=== PATIENT | female | born 1985 | race Asian ===

== ENCOUNTER 2018-10-17 14:50 | Emergency (ER) | payer BC ==
[2018-10-17 14:56] VITALS: BMI 24.5
--- NOTE | 2018-10-17 14:59 | PDOC ---
Rapid Medical Evaluation Chief Complaint: Pain, Acute Medical Evaluation: Allergies Allergy/AdvReac Type Severity Reaction Status Date / Time almond oil [[place] Oil] Allergy Verified 01/12/15 16:35 kiwi Allergy Verified 01/12/15 16:35 [Kiwi (Actinidia Chinensis)] 10/17/18 14:52 I have performed a brief in-person evaluation of this patient. The patient presents with a chief complaint of: abd pain/ Hx of pancreatitis r/ t triglycerides Pertinent physical exam findings: bloating with pain upper quad. + diarhea I have ordered the following: UA/ CMP/ Lipase/ Amylase/ CBC The patient will proceed to the ED for further evaluation.
[2018-10-17 15:58] LABS: PH,URINE 5.5 (5.0-8.0); URINE APPEARANCE CLEAR; URINE BILIRUBIN NEGATIVE (NEGATIVE); URINE COLOR YELLOW; URINE GLUCOSE (UA) NEGATIVE (NEGATIVE); URINE KETONE NEGATIVE (NEGATIVE); URINE LEUK ESTERASE NEGATIVE (NEGATIVE); URINE NITRITE NEGATIVE (NEGATIVE); URINE PROTEIN NEGATIVE (NEGATIVE); URINE UROBILINOGEN 0.2 mg/dL (0.2-1.0)
[2018-10-17 15:59] LABS: BASO % 0.4 % (0-2.0); EOS % 1.9 % (0-4.5); HEMATOCRIT 39.6 % (32.4-45.2); HEMOGLOBIN 13.5 GM/dL (10.7-15.3); LYMPH % 51.3 % (8-40); MCH 29.6 pg (25.7-33.7); MCHC 34.1 g/dl (32.0-36.0); MEAN CELL VOLUME 86.8 fl (80-96); MEAN PLT VOLUME 6.8 fl (7.5-11.1); MONO % 7.5 % (3.8-10.2); NEUT % 38.9 % (42.8-82.8); PLATELET COUNT 314 K/MM3 (134-434); RBC 4.55 M/mm3 (3.60-5.2); RDW 13.3 % (11.6-15.6); WHITE BLOOD COUNT 6.9 K/mm3 (4.0-10.0)
[2018-10-17] MEDS ORDERED: morphine CARPU-JECT 2 MG/1 ML DISP.SYRIN IVPUSH ONE (16:02)
[2018-10-17] MEDS ORDERED: SODIUM CHLORIDE 1,000 ML IV STA (16:02)
[2018-10-17 16:25] LABS: ALK PHOS 47 U/L (45-117); AMYLASE 54 U/L (25-115); ANION GAP 8 MMOL/L (8-16); BILIRUBIN,TOTAL 0.9 mg/dL (0.2-1); BLOOD UREA NITROGEN 12 mg/dL (7-18); CALCIUM 8.6 mg/dL (8.5-10.1); CHLORIDE 103 mmol/L (98-107); CO2 27 mmol/L (21-32); CREATININE 0.7 mg/dL (0.55-1.3); GLUCOSE,RANDOM 75 mg/dL (74-106); LIPASE 282 U/L (73-393); SGOT/AST 157 U/L (15-37); SGPT/ALT 210 U/L (13-61); SODIUM 138 mmol/L (136-145)
[2018-10-17] MEDS ORDERED: MORPHINE SULFATE 2 MG/ML VIAL ONE (16:48)
--- NOTE | 2018-10-17 17:21 | PDOC ---
History of Present Illness - General Chief Complaint: Pain Stated Complaint: ABD PAIN Time Seen by Provider: 10/17/18 15:57 History Source: Patient Exam Limitations: No Limitations - History of Present Illness Travel History: No Initial Comments: 10/17/18 17:17 33-year-old female presents to ED with complaints of left to right upper quadrant abdominal pain since yesterday associated abdominal distention. Patient states history of pancreatitis 3 which required ICU admission last year. Patient denies fever, chills, anorexia, nausea,recent travel, or recent illness. Timing/Duration: reports: constant Quality: reports: moderate, cramping Abdominal Pain Onset Location: reports: LUQ, epigastric Pain Radiation: reports: no radiation Activities at Onset: reports: none Aggravating Factors: improves with: None Alleviating Factors: improves with: None Past History - Travel Traveled outside of the country in the last 30 days: No Close contact w/someone who was outside of country & ill: No - Past Medical History Allergies/Adverse Reactions: Allergies Allergy/AdvReac Type Severity Reaction Status Date / Time almond oil [[place] Oil] Allergy Verified 10/17/18 14:52 kiwi Allergy Verified 10/17/18 14:52 [Kiwi (Actinidia Chinensis)] Home Medications: Ambulatory Orders Fenofibrate 150 mg PO ASDIR 10/17/18 Isoniazid 100 mg PO ASDIR 10/17/18 Sertraline HCl [Zoloft -] 50 mg PO DAILY 10/17/18 traZODone HCL [Trazodone HCl] 50 mg PO ASDIR 10/17/18 Anemia: No Asthma: Yes Cancer: No Cardiac Disorders: No CVA: No COPD: No CHF: No Dementia: No Diabetes: No GI Disorders: Yes (Pancreatitis) Disorders: Yes (uti) HTN: No Hypercholesterolemia: No Liver Disease: No Seizures: No Thyroid Disease: No - Surgical History Abdominal Surgery: No Appendectomy: No Cardiac Surgery: No Cholecystectomy: No Lung Surgery: No Neurologic Surgery: No Orthopedic Surgery: No - Immunization History Immunization Up to Date: No - Suicide/Smoking/Psychosocial Hx Smoking Status: No Smoking History: Never smoked Have you smoked in the past 12 months: Yes Number of Cigarettes Smoked Daily: 2 Information on smoking cessation initiated: No Hx Alcohol Use: No Drug/Substance Use Hx: No Substance Use Type: None Hx Substance Use Treatment: No Patient Lives Alone: No Lives with/in: spouse/SO Review of Systems - Review of Systems Able to Perform ROS?: No Constitutional: No: Symptoms Reported HEENTM: No: Symptoms Reported Respiratory: No: Symptoms reported Cardiac (ROS): No: Symptoms Reported ABD/GI: Yes: Abdominal cramping. No: Nausea, Vomiting : No: Symptoms Reported Musculoskeletal: No: Symptoms Reported Integumentary: No: Symptoms Reported Neurological: No: Symptoms reported Endocrine: No: Symptoms Reported Hematologic/Lymphatic: No: Symptoms Reported *Physical Exam - Vital Signs Last Vital Signs Temp Pulse Resp BP Pulse Ox 98.0 F 71 16 155/95 98 10/17/18 14:52 10/17/18 14:52 10/17/18 14:52 10/17/18 14:52 10/17/18 14:52 - Physical Exam General Appearance: Yes: Nourished, Appropriately Dressed. No: Apparent Distress HEENT: positive: EOMI, LUIS FELIPE, Pharynx Normal Neck: positive: Supple Respiratory/Chest: positive: Lungs Clear, Normal Breath Sounds. negative: Respiratory Distress, Accessory Muscle Use Cardiovascular: positive: Regular Rhythm, Regular Rate. negative: Tachycardia Gastrointestinal/Abdominal: positive: Soft, Tenderness (left epigastric) Musculoskeletal: negative: CVA Tenderness Integumentary: positive: Normal Color, Warm, Moist Neurologic: positive: Motor Strength 5/5 (ambulatory) ED Treatment Course - LABORATORY CBC & Chemistry Diagram: 10/17/18 15:32 10/17/18 15:31 - ADDITIONAL ORDERS Additional order review: Laboratory Results 10/17/18 10/17/18 10/17/18 16:34 15:32 15:31 Sodium 138 Potassium 4.0 Chloride 103 Carbon Dioxide 27 Anion Gap 8 BUN 12 Creatinine 0.7 Creat Clearance w eGFR 96.97 Random Glucose 75 Calcium 8.6 Total Bilirubin 0.9 AST 157 H ALT 210 H Alkaline Phosphatase 47 Total Protein 8.0 Albumin 4.0 Total Amylase 54 Lipase 282 Serum , Qual Negative Urine Color Yellow Urine Appearance Clear Urine pH 5.5 Ur Specific [place] 1.017 Urine Protein Negative Urine Glucose (UA) Negative Urine Ketones Negative Urine Blood Negative Urine Nitrite Negative Urine Bilirubin Negative Urine Urobilinogen 0.2 Ur Leukocyte Esterase Negative 10/17/18 15:32 RBC 4.55 MCV 86.8 MCHC 34.1 RDW 13.3 MPV 6.8 L Neutrophils % 38.9 L Lymphocytes % 51.3 H D Monocytes % 7.5 Eosinophils % 1.9 Basophils % 0.4 D - Medications Given in the ED: ED Medications Discontinued Medications Generic Name Dose Route Start Last Admin Trade Name Bijan PRN Reason Stop Dose Admin Sodium Chloride 1,000 mls @ 1,000 mls/hr 10/17/18 16:02 10/17/18 17:00 Normal Saline - IV 10/17/18 17:01 1,000 mls/hr ASDIR STA Administration Morphine Sulfate 2 mg 10/17/18 16:02 10/17/18 17:00 Morphine Injection - IVPUSH 10/17/18 16:03 2 mg ONCE ONE Administration Medical Decision Making - Medical Decision Making 10/17/18 17:01 Chief complaint: Left upper quadrant left epigastric pain since yesterday. Patient with history of pancreatitis 3. Patient is no other complaints this time Exam. Patient with left upper quadrant tenderness and epigastric tenderness with no distention. Vital signs stable. Plan: IV fluids, morphine, urine and labs 10/17/18 17:33 Laboratory Tests 10/17/18 10/17/18 10/17/18 15:31 15:32 15:32 WBC 6.9 Hgb 13.5 Hct 39.6 MCV 86.8 Absolute Neuts (auto) 2.7 Neutrophils % 38.9 L Lymphocytes % 51.3 H D Sodium 138 Potassium 4.0 Chloride 103 Carbon Dioxide 27 Anion Gap 8 BUN 12 Creatinine 0.7 Random Glucose 75 AST 157 H ALT 210 H Total Amylase 54 Lipase 282 Serum , Qual Urine Nitrite Negative Urine Bilirubin Negative Ur Leukocyte Esterase Negative 10/17/18 16:34 WBC Hgb Hct MCV Absolute Neuts (auto) Neutrophils % Lymphocytes % Sodium Potassium Chloride Carbon Dioxide Anion Gap BUN Creatinine Random Glucose AST ALT Total Amylase Lipase Serum , Qual Negative Urine Nitrite Urine Bilirubin Ur Leukocyte Esterase Abdominal ultrasound added secondary to elevated LFT 10/17/18 18:38 No evidence of bili tract dilatation. No evidence of cholilithiasis or acute cholecystitis. Mild right hydronephrosis is noted. The liver and partially visualized pancreas demonstrate no sonographic pathology. Patient be recommended to follow up with her PCP 10/17/18 18:42 Patient will follow-up with her primary care doctor given copy of her labs along with ultrasound findings. Patient requesting something stronger for night since she is having difficulty sleeping secondary to pain. Patient be given 6 tablets of Percocet. *DC/Admit/Observation/Transfer Diagnosis at time of Disposition: Abdominal pain - Discharge Dispostion Disposition: HOME Condition at time of disposition: Improved - Referrals Referrals: Rachele Millard MD [Primary Care Provider] - - Patient Instructions Printed Discharge Instructions: DI for Abdominal Pain-Adult Additional Instructions: Please take your lab work along with your ultrasound with history of primary care doctor for follow-up and management. May take Tylenol for discomfort or Percocet for extreme pain. If your symptoms worsen despite above recommendations please return to the nearest emergency room. - Post Discharge Activity Forms/Work/School Notes: Back to Work
[2018-10-17 18:57] VITALS: BP 130/80; PULSE 70; TEMP 98.3
[2018-10-19 03:08] LABS: HEP.C VIRUS AB 0.1 s/co ratio (0.0-0.9)
== END 2018-10-17 18:58 | disposition home or self-care (01) ==
LOC: JER 14:50
PROC: 3E033NZ Introduction of Analgesics, Hypnotics, Sedatives into Peripheral Vein, Percutaneous Approach (ICD-10-PCS; principal; 2018-10-17)
DX: R10.9 Unspecified abdominal pain (principal); Z87.19 Personal history of other diseases of the digestive system
CPT/HCPCS: 36415; 76705-TC; 80053; 80074; 81003; 82150; 83690; 84703; 85025; 99284-25; J7030

== ENCOUNTER 2018-12-20 14:25 | Emergency (ER) | payer OTHER, BC | END 2018-12-20 19:17 | disposition home or self-care (01) | LOC: JER 14:25 ==

== ENCOUNTER 2019-08-26 18:26 | Day surgery (SDC) | payer BC, OTHER ==
[2019-08-26 18:45] VITALS: BMI 26.9
[2019-08-26] MEDS ORDERED: morphine CARPU-JECT 4 MG/1 ML DISP.SYRIN IVPUSH ONE ×3 (20:17→22:22)
[2019-08-26] MEDS ORDERED: PIPERACILLIN/TAZOB 3.375 GM 3.375 GM in DEXTROSE 5%-WATER - 50 ML IVPB ONE (20:17)
[2019-08-26] MEDS ORDERED: PIPERACILLIN/TAZOB 3.375 GM 3.375 GM/50 ML BAG IVPB ONE (20:29)
[2019-08-26] MEDS ORDERED: morphine SULFATE 4 MG/ML VIAL ONE ×2 (20:29→21:00)
[2019-08-26] MEDS ORDERED: LACTATED RINGERS SOLUTION 1,000 ML/1,000 ML INFUS.BAG IV SCH (20:30)
[2019-08-26] MEDS ORDERED: SODIUM CHLORIDE 1,000 ML IV STA (20:32)
[2019-08-26] MEDS ORDERED: ONDANSETRON 4 MG/2 ML VIAL IVPB ONE (20:32)
--- NOTE | 2019-08-26 20:36 | PDOC ---
History of Present Illness - General Chief Complaint: Pain, Acute Stated Complaint: SENT BY PCP Time Seen by Provider: 08/26/19 20:11 History Source: Patient Exam Limitations: No Limitations - History of Present Illness Initial Comments: 08/26/19 20:33 33y F with PMH of HLD presenting to ED with complaints of RLQ abdominal pain x3 days. Pt states she felt bloated but continued to have the pain. She went to [facility] and was diagnosed with acute appendicitis seen on CT. She states that she had 2 spoonfuls of soup 2h ago but has not eaten anything else all day. Denies diarrhea, vomiting, nausea, chest pain, sob, headache, fevers, chills. No previous surgeries. PMD: [facility] PMH: see hpi PSH: none Meds: fenofibrate, OCP Allergies: nkda Past History - Past Medical History Allergies/Adverse Reactions: Allergies Allergy/AdvReac Type Severity Reaction Status Date / Time almond oil [[place] Oil] Allergy Verified 08/26/19 18:42 kiwi Allergy Verified 08/26/19 18:42 [Kiwi (Actinidia Chinensis)] Home Medications: Ambulatory Orders Fenofibrate 150 mg PO ASDIR 10/17/18 Isoniazid 100 mg PO ASDIR 10/17/18 Oxycodone HCl/Acetaminophen [Percocet 5-325 mg Tablet] 1 - 2 tab PO Q6H PRN #8 tab MDD 4 10/17/18 Sertraline HCl [Zoloft -] 50 mg PO DAILY 10/17/18 traZODone HCL [Trazodone HCl] 50 mg PO ASDIR 10/17/18 Acetaminophen/Caffeine/Butalb [Fioricet -] 1 tablet PO Q8H #15 tablet MDD 3 03/02 Cyclobenzaprine HCl [Flexeril -] 10 mg PO HS #10 tablet 12/20/18 Anemia: No Asthma: Yes Cancer: No Cardiac Disorders: No CVA: No COPD: No CHF: No Dementia: No Diabetes: No GI Disorders: Yes (Pancreatitis) Disorders: Yes (uti) HTN: No Hypercholesterolemia: No Liver Disease: No Seizures: No Thyroid Disease: No - Surgical History Abdominal Surgery: No Appendectomy: No Cardiac Surgery: No Cholecystectomy: No Lung Surgery: No Neurologic Surgery: No Orthopedic Surgery: No - Immunization History Immunization Up to Date: No - Psycho Social/Smoking Cessation Hx Smoking Status: No Smoking History: Never smoked Have you smoked in the past 12 months: No Number of Cigarettes Smoked Daily: 2 If you are a former smoker, when did you quit?: 1 year ago Information on smoking cessation initiated: No Hx Alcohol Use: No Drug/Substance Use Hx: No Substance Use Type: None Hx Substance Use Treatment: No Review of Systems - Review of Systems Constitutional: Yes: Loss of Appetite. No: Chills, Fever HEENTM: No: Symptoms Reported Respiratory: No: Symptoms reported Cardiac (ROS): No: Symptoms Reported ABD/GI: Yes: See HPI, Abdominal cramping. No: Constipated, Diarrhea, Nausea, Vomiting : No: Symptoms Reported Musculoskeletal: No: Symptoms Reported Integumentary: No: Symptoms Reported Neurological: No: Symptoms reported *Physical Exam - Vital Signs Last Vital Signs Temp Pulse Resp BP Pulse Ox 98.1 F 82 18 143/95 98 08/26/19 18:42 08/26/19 18:42 08/26/19 18:42 08/26/19 18:42 08/26/19 18:42 - Physical Exam General Appearance: Yes: Nourished, Appropriately Dressed, Mild Distress HEENT: positive: EOMI, LUIS FELIPE Neck: positive: Trachea midline, Supple Respiratory/Chest: positive: Lungs Clear, Normal Breath Sounds. negative: Crackles, Rales, Rhonchi, Stridor, Wheezing Cardiovascular: positive: Regular Rhythm, Regular Rate, S1, S2. negative: Edema , JVD, Murmur Vascular Pulses: Dorsalis-Pedis (R): 2+, Doralis-Pedis (L): 2+ Gastrointestinal/Abdominal: positive: Normal Bowel Sounds, Soft, Tenderness (rlq ). negative: Distended, Guarding, Rebound Extremity: positive: Normal Capillary Refill. 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 Called Dr. Yeung who is familiar with the case. CT results (PO contrast): appendix is thickened measuring 14mm in diameter, with a focus of high density which could be anppendicolith or oral contrast. Periappendiceal infiltration. compatible with appendicitis. No fluid collection. Small R lower quadrant lymph nodes mearsuring up to 0.6cm. Colon and small bowel appear within normal limits. No gastric abnormality. No ascities or peritoneal disease. Mild r hydronephrosis. Normal uterus without evidene of a mass. L ovarian cyst measuring 4.2x4.3cm. Vitals wnl Getting preop labs, surgery on board, requesting call back if with lab results -preop labs. Does not require preg; ct today- no iup. -fluids, zofran, morphine, zosyn. 08/26/19 21:12 ekg: nsr at 80bpm. normal axis, normal intervals. no francisco or depressions, no 08/26/19 22:07 labs wnl. no white count, normal cmp, serum preg negative. Calling back Dr. Yeung 08/26/19 22:14 Dr. Yeung will call OR. requesting patient to be admitted to hospitalist. MB sent. Discharge - Discharge Information Problems reviewed: Yes Clinical Impression/Diagnosis: Appendicitis Qualifiers: Appendicitis type: unspecified Qualified Code(s): K37 - Unspecified appendicitis Condition: Stable - Admission Yes - Follow up/Referral Referrals: Rachele Millard MD [Primary Care Provider] - - Patient Discharge Instructions - Post Discharge Activity
[2019-08-26 21:02] LABS: PROTHROMBIN TIME (PATIENT) 11.8 SEC (9.7-13.0)
[2019-08-26 21:05] LABS: ACTIVATED PTT 31.1 SECONDS (25.2-36.5)
--- NOTE | 2019-08-26 21:13 | PDOC ---
Documentation entered by Terrance Alexandre SCRIBE, acting as scribe for Cynthia Justice DO. Cynthia Justice DO: This documentation has been prepared by the Baldomero ramirez Xhesika, SCRIBE, under my direction and personally reviewed by me in its entirety. I confirm that the documentation accurately reflects all work, treatment, procedures, and medical decision making performed by me. Attending Attestation - Resident Resident Name: Belén Stone - ED Attending Attestation I have performed the following: I have examined & evaluated the patient, The case was reviewed & discussed with the resident, I agree w/resident's findings & plan, Exceptions are as noted - HPI HPI: 08/26/19 21:05 This patient is a 33 year old female, with a significant past medical history of pancreatitis, asthma and chronic UTIs, who presents to the emergency department with RLQ abdominal pain x3days. Pt states her abdominal pain began while at work, today she went to [facility], had a CT done which was positive for appendicitis. The patient denies chest pain, shortness of breath, headache and dizziness. Denies fever, chills, cough, nausea, vomiting, diarrhea and constipation. Denies dysuria, frequency, urgency and hematuria. Allergies: Almonds, kiwi Social history: Reports alcohol use (2-4 drinks weekly) and social cigarette use. She denies drug use. PCP: Dr. Jaspreet Hankins - Physicial Exam PE: 08/26/19 21:05 GENERAL: Awake, alert, and fully oriented, in no acute distress NECK: Normal ROM, supple, no lymphadenopathy, JVD, or masses LUNGS: Breath sounds equal, clear to auscultation bilaterally. No wheezes, and no crackles HEART: Regular rate and rhythm, normal S1 and S2, no murmurs, rubs or gallops ABDOMEN: +RLQ tenderness. Soft, normoactive bowel sounds. No guarding, no rebound. No masses EXTREMITIES: Normal range of motion, no edema. No clubbing or cyanosis. No cords, erythema, or tenderness NEUROLOGICAL: Cranial nerves II through XII grossly intact. SKIN: Warm, Dry, normal turgor, no rashes or lesions noted. - Medical Decision Making 08/26/19 21:11 a/p: 33yo female sent from [facility] for acute appy on ct -pt already discussed the case with Dr. crespo -will send labs -will start zosyn -npo -type and screen -resident discussed the case with Dr. Crespo who requested call back when labs back -will monitor and reassess -pain control, ivf hydration 08/26/19 21:13 serum preg neg 08/26/19 21:16 08/26/19 21:35 no elevated wbc 08/26/19 22:21 resident discussed the case with Dr. Crespo who will be taking hte patient to the OR in 30 min microblog sent to [employer] Heart Score/ECG Review - ECG Intrepretation Comment:: 08/26/19 21:11 sinus at 80, nl axis, nl interval, no acute st/t wave findings
[2019-08-26 21:22] LABS: BASO % 0.4 % (0-2.0); EOS % 4.6 % (0-4.5); HEMATOCRIT 33.4 % (32.4-45.2); HEMOGLOBIN 11.5 GM/dL (10.7-15.3); LYMPH % 35.3 % (8-40); MCHC 34.4 g/dl (32.0-36.0); MEAN CELL VOLUME 87.2 fl (80-96); MEAN PLT VOLUME 6.6 fl (7.5-11.1); MONO % 7.5 % (3.8-10.2); NEUT % 52.2 % (42.8-82.8); PLATELET COUNT 343 K/MM3 (134-434); RBC 3.84 M/mm3 (3.60-5.2); RDW 12.2 % (11.6-15.6); WHITE BLOOD COUNT 8.8 K/mm3 (4.0-10.0)
[2019-08-26 22:05] LABS: ALBUMIN 3.5 g/dl (3.4-5.0); BILIRUBIN,TOTAL 0.4 mg/dL (0.2-1); CREATININE 0.7 mg/dL (0.55-1.3); POTASSIUM 3.7 mmol/L (3.5-5.1); TOT PROT 6.9 g/dl (6.4-8.2)
[2019-08-26] MEDS ORDERED: MORPHINE SULFATE 2 MG/ML VIAL ONE (22:26)
[2019-08-26] MEDS ORDERED: BUPIVACAINE HCL/PF 0.25% (2.5MG/ML) 10 ML VIAL ONE (23:07)
--- NOTE | 2019-08-26 23:12 | OP ---
Operative Note - Note: Operative Date: 08/26/19 Pre-Operative Diagnosis: acute appendicittis Operation: laparoscopic Appendectomy Findings: acute appendicitis Post-Operative Diagnosis: Same as Pre-op Surgeon: Norris Yeung Anesthesia: General Specimens Removed: appendix Estimated Blood Loss (mls): 5 Operative Report Dictated: Yes
[2019-08-26] MEDS ORDERED: PROPOFOL 20 ML ONE (23:34)
[2019-08-26] MEDS ORDERED: SUCCINYLCHOLINE CHLORIDE 200 MG/10 ML SYRINGE ONE (23:34)
[2019-08-26] MEDS ORDERED: fentaNYL CITRATE 250 MCG/5 ML VIAL ONE (23:34)
[2019-08-26] MEDS ORDERED: LIDOCAINE HCL/PF 2% SDV 5ML VIAL ONE (23:34)
[2019-08-26] MEDS ORDERED: BUPIVACAINE HCL/PF 0.25% (2.5MG/ML) 10 ML VIAL IJ ONE (23:58)
[2019-08-27] MEDS ORDERED: KETOROLAC TROMETHAMINE 30 MG/1 ML VIAL ONE (00:11)
[2019-08-27] MEDS ORDERED: DEXAMETHASONE SOD PHOSPHATE 4 MG/1 ML VIAL ONE (00:11)
[2019-08-27] MEDS ORDERED: LIDOCAINE HCL 2% 100 MG/5 ML DISP.SYRIN ONE (00:11)
[2019-08-27] MEDS ORDERED: ONDANSETRON 4 MG/2 ML VIAL IVPUSH PRN (00:41)
[2019-08-27] MEDS ORDERED: PROMETHAZINE HCL 25 MG/1 ML VIAL IVPUSH PRN (00:41)
[2019-08-27] MEDS ORDERED: MORPHINE SULFATE 2 MG/ML VIAL ONE (00:45)
[2019-08-27] MEDS ORDERED: morphine SULFATE 4 MG/ML VIAL ONE ×2 (00:45)
[2019-08-27] MEDS ORDERED: PIPERACILLIN/TAZOB 3.375 GM 3.375 GM/50 ML BAG IVPB ONE (00:45)
--- NOTE | 2019-08-27 01:10 | HP ---
<Paulette Farrar - Last Filed: 08/27/19 00:46> CHIEF COMPLAINT: Appendicitis PCP: Dr. Millard HISTORY OF PRESENT ILLNESS: 33 F PMH of recurrent pancreatitis, HLD, asthma, and anxiety who presents today with acute appendicitis as confirmed by outpatient imaging. Patient has had 3 days of worsening abdominal pain that she localizes to the right lower quadrant. She has not had any nausea or vomiting, and had a normal formed bowel movement a few hours before admission. Patient denies having regular appetite but has been able to maintain PO intake. Patient differentiates her symptoms from her usual pancreatitis symptomolgy. ER course was notable for: (1) Morphine 4mg x2, and 2mg was given, zoysn, and zofran were given (2) Surgery was consulted, decision was made to take the patient to the OR emergently for appendectomy Recent Travel: Denies PAST MEDICAL HISTORY: pancreatitis, HLD, asthma, chronic UTI PAST SURGICAL HISTORY: None Social History: Smoking: Denies Alcohol: Occasional Drugs: Denies Allergies almond oil [[place] Oil] Allergy (Verified 08/26/19 18:42) order sheet states allergy to almond kiwi [Kiwi (Actinidia Chinensis)] Allergy (Verified 08/26/19 18:42) order sheet states kiwi allergy HOME MEDICATIONS: Home Medications Medication Instructions Recorded Fenofibrate 150 mg PO ASDIR 10/17/18 Isoniazid 100 mg PO ASDIR 10/17/18 Oxycodone HCl/Acetaminophen 1 - 2 tab PO Q6H PRN #8 tab MDD 4 10/17/18 [Percocet 5-325 mg Tablet] Sertraline HCl [Zoloft -] 50 mg PO DAILY 10/17/18 traZODone HCL [Trazodone HCl] 50 mg PO ASDIR 10/17/18 Acetaminophen/Caffeine/Butalb 1 tablet PO Q8H #15 tablet MDD 3 12/20/18 [Fioricet -] Cyclobenzaprine HCl [Flexeril -] 10 mg PO HS #10 tablet 12/20/18 REVIEW OF SYSTEMS CONSTITUTIONAL: Present: loss of appetite, Absent: fever, chills, diaphoresis, generalized weakness, malaise, weight change HEENT: Absent: rhinorrhea, nasal congestion, throat pain, throat swelling, difficulty swallowing, mouth swelling, ear pain, eye pain, visual changes CARDIOVASCULAR: Absent: chest pain, syncope, palpitations, irregular heart rate, lightheadedness , peripheral edema RESPIRATORY: Absent: cough, shortness of breath, dyspnea with exertion, orthopnea, wheezing, stridor, hemoptysis GASTROINTESTINAL: Present: abdominal pain, abdominal distension, constipation, Absent: nausea, vomiting, diarrhea, , melena, hematochezia GENITOURINARY: Absent: dysuria, frequency, urgency, hesitancy, hematuria, flank pain, genital pain MUSCULOSKELETAL: Absent: myalgia, arthralgia, joint swelling, back pain, neck pain SKIN: Absent: rash, itching, pallor NEUROLOGIC: Absent: headache, focal weakness or paresthesias, dizziness, unsteady gait, seizure, mental status changes, bladder or bowel incontinence PSYCHIATRIC: Absent: anxiety, depression, suicidal or homicidal ideation, hallucinations. PHYSICAL EXAMINATION Vital Signs - 24 hr 08/26/19 08/26/19 18:42 22:23 Temperature 98.1 F 98.5 F Pulse Rate 82 Pulse Rate [ 88 Apical] Respiratory 18 18 Rate Blood Pressure 143/95 Blood Pressure 138/93 [Right Arm] O2 Sat by Pulse 98 99 Oximetry (%) GENERAL: Awake, alert, and fully oriented, in discomfort. HEAD: Normal with no signs of trauma. EARS, NOSE, THROAT: Moist mucus membranes NECK: Normal range of motion, supple without lymphadenopathy, JVD, or masses. LUNGS: CTAB HEART: Regular rate and rhythm, normal S1 and S2 without murmur, rub or gallop. ABDOMEN: Distended, tender to palpation in the RLQ. Normoactive bowel sounds, no guarding or rebound tenderness MUSCULOSKELETAL: Normal range of motion at all joints. No bony deformities or tenderness. No CVA tenderness. UPPER EXTREMITIES: 2+ pulses, warm, well-perfused. No cyanosis. No clubbing. No peripheral edema. LOWER EXTREMITIES: 2+ pulses, warm, well-perfused. No calf tenderness. No peripheral edema. NEUROLOGICAL: Cranial nerves II-XII intact. PSYCHIATRIC: Cooperative. Good eye contact. Appropriate mood and affect. SKIN: Warm, dry, normal turgor, no rashes or lesions noted, normal capillary refill. Laboratory Results - last 24 hr 08/26/19 08/26/19 08/26/19 20:06 20:25 20:25 WBC Corrected WBC (auto) RBC Hgb Hct MCV MCH MCHC RDW Plt Count MPV Absolute Neuts (auto) Absolute Lymphs (auto) Absolute Monos (auto) Absolute Eos (auto) Absolute Basos (auto) Add Manual Diff Neutrophils % Lymphocytes % Monocytes % Eosinophils % Basophils % Nucleated RBC % Platelet Estimate Platelet Comment Normal RBC Morphology PT with INR INR PTT (Actin FS) Sodium Cancelled Potassium Cancelled Chloride Cancelled Carbon Dioxide Cancelled Anion Gap Cancelled BUN Cancelled Creatinine Cancelled Est GFR (CKD-EPI)AfAm Cancelled Est GFR (CKD-EPI)NonAf Cancelled Random Glucose Cancelled Lactic Acid Calcium Cancelled Total Bilirubin Cancelled AST Cancelled ALT Cancelled Alkaline Phosphatase Cancelled Total Protein Cancelled Albumin Cancelled Lipase Cancelled Serum , Qual Negative Blood Type A POSITIVE Antibody Screen Negative 08/26/19 08/26/19 08/26/19 20:25 20:25 20:25 WBC Cancelled Corrected WBC (auto) Cancelled RBC Cancelled Hgb Cancelled Hct Cancelled MCV Cancelled MCH Cancelled MCHC Cancelled RDW Cancelled Plt Count Cancelled MPV Cancelled Absolute Neuts (auto) Cancelled Absolute Lymphs (auto) Cancelled Absolute Monos (auto) Cancelled Absolute Eos (auto) Cancelled Absolute Basos (auto) Cancelled Add Manual Diff Cancelled Neutrophils % Cancelled Lymphocytes % Cancelled Monocytes % Cancelled Eosinophils % Cancelled Basophils % Cancelled Nucleated RBC % Cancelled Platelet Estimate Cancelled Platelet Comment Cancelled Normal RBC Morphology Cancelled PT with INR 11.80 INR 1.00 PTT (Actin FS) 31.1 Sodium Potassium Chloride Carbon Dioxide Anion Gap BUN Creatinine Est GFR (CKD-EPI)AfAm Est GFR (CKD-EPI)NonAf Random Glucose Lactic Acid 1.1 Calcium Total Bilirubin AST ALT Alkaline Phosphatase Total Protein Albumin Lipase Serum , Qual Blood Type Antibody Screen 08/26/19 08/26/19 08/26/19 20:25 20:53 20:57 WBC 8.8 Corrected WBC (auto) RBC 3.84 Hgb 11.5 Hct 33.4 D MCV 87.2 MCH 30.0 MCHC 34.4 RDW 12.2 Plt Count 343 MPV 6.6 L Absolute Neuts (auto) 4.6 Absolute Lymphs (auto) Absolute Monos (auto) Absolute Eos (auto) Absolute Basos (auto) Add Manual Diff Neutrophils % 52.2 D Lymphocytes % 35.3 D Monocytes % 7.5 Eosinophils % 4.6 H D Basophils % 0.4 Nucleated RBC % 0 Platelet Estimate Platelet Comment Normal RBC Morphology PT with INR INR PTT (Actin FS) Sodium 142 Potassium 3.7 Chloride 110 H Carbon Dioxide 23 Anion Gap 10 BUN 9.0 Creatinine 0.7 Est GFR (CKD-EPI)AfAm 132.87 Est GFR (CKD-EPI)NonAf 114.64 Random Glucose 97 Lactic Acid Calcium 8.0 L Total Bilirubin 0.4 AST 14 L ALT 16 Alkaline Phosphatase 30 L Total Protein 6.9 Albumin 3.5 Lipase 170 Serum , Qual Blood Type A POSITIVE Antibody Screen Negative ASSESSMENT/PLAN: 33 F PMH of recurrent pancreatitis, HLD, asthma, and anxiety who presents today with acute appendicitis. 1) Appendicitis -Outpatient imaging confirmation -General surgery- Dr. Yeung consulted. -EBL: 5ml -Pain management as per anesthesia -Clear liquid diet, advance as tolerated -D5NS @100 ml/hr until diet tolerated -Incentive spirometer 2) Hx of HLD -Continue fenofibirate 150 mg PO Daily 3) Hx of Asthma -Currently satting >97% -Continue to monitor -Duonebs/albuterol if needed F: D5-NS @100 ml/hr E: Monitor BMP N: Clears DVT: SCD Dispo: admitted to med/surg ATTENDING PHYSICIAN STATEMENT I saw and evaluated the patient. I reviewed the resident's note and discussed the case with the resident. I agree with the resident's findings and plan as documented. SUBJECTIVE: OBJECTIVE: ASSESSMENT AND PLAN: <Jeronimo Stearns - Last Filed: 08/27/19 04:33> CHIEF COMPLAINT: PCP: HISTORY OF PRESENT ILLNESS: ER course was notable for: (1) (2) (3) Recent Travel: PAST MEDICAL HISTORY: PAST SURGICAL HISTORY: Social History: Smoking: Alcohol: Drugs: Allergies almond oil [[place] Oil] Allergy (Verified 08/26/19 18:42) order sheet states allergy to almond kiwi [Kiwi (Actinidia Chinensis)] Allergy (Verified 08/26/19 18:42) order sheet states kiwi allergy HOME MEDICATIONS: Home Medications Medication Instructions Recorded Fenofibrate 150 mg PO ASDIR 10/17/18 Isoniazid 100 mg PO ASDIR 10/17/18 Oxycodone HCl/Acetaminophen 1 - 2 tab PO Q6H PRN #8 tab MDD 4 10/17/18 [Percocet 5-325 mg Tablet] Sertraline HCl [Zoloft -] 50 mg PO DAILY 10/17/18 traZODone HCL [Trazodone HCl] 50 mg PO ASDIR 10/17/18 Acetaminophen/Caffeine/Butalb 1 tablet PO Q8H #15 tablet MDD 3 12/20/18 [Fioricet -] Cyclobenzaprine HCl [Flexeril -] 10 mg PO HS #10 tablet 12/20/18 REVIEW OF SYSTEMS CONSTITUTIONAL: Absent: fever, chills, diaphoresis, generalized weakness, malaise, loss of appetite, weight change HEENT: Absent: rhinorrhea, nasal congestion, throat pain, throat swelling, difficulty swallowing, mouth swelling, ear pain, eye pain, visual changes CARDIOVASCULAR: Absent: chest pain, syncope, palpitations, irregular heart rate, lightheadedness , peripheral edema RESPIRATORY: Absent: cough, shortness of breath, dyspnea with exertion, orthopnea, wheezing, stridor, hemoptysis GASTROINTESTINAL: Absent: abdominal pain, abdominal distension, nausea, vomiting, diarrhea, constipation, melena, hematochezia GENITOURINARY: Absent: dysuria, frequency, urgency, hesitancy, hematuria, flank pain, genital pain MUSCULOSKELETAL: Absent: myalgia, arthralgia, joint swelling, back pain, neck pain SKIN: Absent: rash, itching, pallor HEMATOLOGIC/IMMUNOLOGIC: Absent: easy bleeding, easy bruising, lymphadenopathy, frequent infections ENDOCRINE: Absent: unexplained weight gain, unexplained weight loss, heat intolerance, cold intolerance NEUROLOGIC: Absent: headache, focal weakness or paresthesias, dizziness, unsteady gait, seizure, mental status changes, bladder or bowel incontinence PSYCHIATRIC: Absent: anxiety, depression, suicidal or homicidal ideation, hallucinations. PHYSICAL EXAMINATION Vital Signs - 24 hr 08/26/19 08/26/19 08/27/19 18:42 22:23 00:40 Temperature 98.1 F 98.5 F 98.4 F Pulse Rate 82 83 Pulse Rate [ 88 Apical] Respiratory 18 18 16 Rate Blood Pressure 143/95 129/90 Blood Pressure 138/93 [Right Arm] O2 Sat by Pulse 98 99 95 Oximetry (%) 08/27/19 08/27/19 08/27/19 00:55 01:10 01:25 Temperature Pulse Rate 85 84 82 Pulse Rate [ Apical] Respiratory 16 16 16 Rate Blood Pressure 118/75 115/55 L 124/78 Blood Pressure [Right Arm] O2 Sat by Pulse 99 100 98 Oximetry (%) 08/27/19 08/27/19 01:40 01:59 Temperature 98.2 F Pulse Rate 83 82 Pulse Rate [ Apical] Respiratory 14 16 Rate Blood Pressure 121/78 121/81 Blood Pressure [Right Arm] O2 Sat by Pulse 97 100 Oximetry (%) GENERAL: Awake, alert, and fully oriented, in no acute distress. HEAD: Normal with no signs of trauma. EYES: Pupils equal, round and reactive to light, extraocular movements intact, sclera anicteric, conjunctiva clear. No lid lag. EARS, NOSE, THROAT: Ears normal, nares patent, oropharynx clear without exudates. Moist mucous membranes. NECK: Normal range of motion, supple without lymphadenopathy, JVD, or masses. LUNGS: Breath sounds equal, clear to auscultation bilaterally. No wheezes, and no crackles. No accessory muscle use. HEART: Regular rate and rhythm, normal S1 and S2 without murmur, rub or gallop. ABDOMEN: Soft, nontender, not distended, normoactive bowel sounds, no guarding, no rebound, no masses. No hepatomegaly or splenomegaly. MUSCULOSKELETAL: Normal range of motion at all joints. No bony deformities or tenderness. No CVA tenderness. UPPER EXTREMITIES: 2+ pulses, warm, well-perfused. No cyanosis. No clubbing. No peripheral edema. LOWER EXTREMITIES: 2+ pulses, warm, well-perfused. No calf tenderness. No peripheral edema. NEUROLOGICAL: Cranial nerves II-XII intact. Normal speech. Normal gait. PSYCHIATRIC: Cooperative. Good eye contact. Appropriate mood and affect. SKIN: Warm, dry, normal turgor, no rashes or lesions noted, normal capillary refill. Laboratory Results - last 24 hr 08/26/19 08/26/19 08/26/19 20:06 20:25 20:25 WBC Corrected WBC (auto) RBC Hgb Hct MCV MCH MCHC RDW Plt Count MPV Absolute Neuts (auto) Absolute Lymphs (auto) Absolute Monos (auto) Absolute Eos (auto) Absolute Basos (auto) Add Manual Diff Neutrophils % Lymphocytes % Monocytes % Eosinophils % Basophils % Nucleated RBC % Platelet Estimate Platelet Comment Normal RBC Morphology PT with INR INR PTT (Actin FS) Sodium Cancelled Potassium Cancelled Chloride Cancelled Carbon Dioxide Cancelled Anion Gap Cancelled BUN Cancelled Creatinine Cancelled Est GFR (CKD-EPI)AfAm Cancelled Est GFR (CKD-EPI)NonAf Cancelled Random Glucose Cancelled Lactic Acid Calcium Cancelled Total Bilirubin Cancelled AST Cancelled ALT Cancelled Alkaline Phosphatase Cancelled Total Protein Cancelled Albumin Cancelled Lipase Cancelled Serum , Qual Negative Blood Type A POSITIVE Antibody Screen Negative 08/26/19 08/26/19 08/26/19 20:25 20:25 20:25 WBC Cancelled Corrected WBC (auto) Cancelled RBC Cancelled Hgb Cancelled Hct Cancelled MCV Cancelled MCH Cancelled MCHC Cancelled RDW Cancelled Plt Count Cancelled MPV Cancelled Absolute Neuts (auto) Cancelled Absolute Lymphs (auto) Cancelled Absolute Monos (auto) Cancelled Absolute Eos (auto) Cancelled Absolute Basos (auto) Cancelled Add Manual Diff Cancelled Neutrophils % Cancelled Lymphocytes % Cancelled Monocytes % Cancelled Eosinophils % Cancelled Basophils % Cancelled Nucleated RBC % Cancelled Platelet Estimate Cancelled Platelet Comment Cancelled Normal RBC Morphology Cancelled PT with INR 11.80 INR 1.00 PTT (Actin FS) 31.1 Sodium Potassium Chloride Carbon Dioxide Anion Gap BUN Creatinine Est GFR (CKD-EPI)AfAm Est GFR (CKD-EPI)NonAf Random Glucose Lactic Acid 1.1 Calcium Total Bilirubin AST ALT Alkaline Phosphatase Total Protein Albumin Lipase Serum , Qual Blood Type Antibody Screen 08/26/19 08/26/19 08/26/19 20:25 20:53 20:57 WBC 8.8 Corrected WBC (auto) RBC 3.84 Hgb 11.5 Hct 33.4 D MCV 87.2 MCH 30.0 MCHC 34.4 RDW 12.2 Plt Count 343 MPV 6.6 L Absolute Neuts (auto) 4.6 Absolute Lymphs (auto) Absolute Monos (auto) Absolute Eos (auto) Absolute Basos (auto) Add Manual Diff Neutrophils % 52.2 D Lymphocytes % 35.3 D Monocytes % 7.5 Eosinophils % 4.6 H D Basophils % 0.4 Nucleated RBC % 0 Platelet Estimate Platelet Comment Normal RBC Morphology PT with INR INR PTT (Actin FS) Sodium 142 Potassium 3.7 Chloride 110 H Carbon Dioxide 23 Anion Gap 10 BUN 9.0 Creatinine 0.7 Est GFR (CKD-EPI)AfAm 132.87 Est GFR (CKD-EPI)NonAf 114.64 Random Glucose 97 Lactic Acid Calcium 8.0 L Total Bilirubin 0.4 AST 14 L ALT 16 Alkaline Phosphatase 30 L Total Protein 6.9 Albumin 3.5 Lipase 170 Serum , Qual Blood Type A POSITIVE Antibody Screen Negative ASSESSMENT/PLAN: Visit type - Emergency Visit Emergency Visit: Yes ED Registration Date: 08/26/19 Care time: The patient presented to the Emergency Department on the above date and was hospitalized for further evaluation of their emergent condition. - New Patient This patient is new to me today: Yes Date on this admission: 08/27/19 - Critical Care Critical Care patient: No ATTENDING PHYSICIAN STATEMENT I saw and evaluated the patient. I reviewed the resident's note and discussed the case with the resident. I agree with the resident's findings and plan as documented. 33 F PMH of recurrent pancreatitis, HLD, asthma, and anxiety was referred by PMD after her CT Abd results showed acute appendicitis. She has been having RLQ pain for last 3 days which was progressively getting worse.. After coming to ED she was taken to the OR for lap appendectomy She denies chest pain, nausea, vomiting, fever . Last Vital Signs Temp Pulse Resp BP Pulse Ox 98.2 F 82 16 121/81 100 08/27/19 01:59 08/27/19 01:59 08/27/19 01:59 08/27/19 01:59 08/27/19 01:59 GENERAL: Awake, alert, and fully oriented, in no acute distress NECK: Normal ROM, supple, no lymphadenopathy, JVD, or masses LUNGS: Breath sounds equal, clear to auscultation bilaterally. No wheezes, and no crackles HEART: Regular rate and rhythm, normal S1 and S2, no murmurs, rubs or gallops ABDOMEN: s/p surgery, small surgical scar below umbilicus, mild abd distension and generalized tenderness, BS + EXTREMITIES: Normal range of motion, no edema. No clubbing or cyanosis. No cords, erythema, or tenderness NEUROLOGICAL: Cranial nerves II through XII grossly intact. SKIN: Warm, Dry, normal turgor, no rashes or lesions noted. labs, imaging, reviewed Acute appendicitis Admit to floor S/p surgery Analgesia IV antibiotics Zosyn Surgery on board IV hydration Diet advance as tolerated DVt ppx Discussed with resident staff.
[2019-08-27] MEDS ORDERED: DEXTROSE 5%-NORMAL SALINE 1,000 ML IV SCH (01:15)
[2019-08-27] MEDS: KETOROLAC TROMETHAMINE 15 MG/ML VIAL IVPUSH PRN ×2 (03:17→13:30)
[2019-08-27] MEDS: oxyCODONE HCL 5 MG TABLET PO PRN ×2 (03:47→09:12)
[2019-08-27] MEDS ORDERED: MORPHINE SULFATE 2 MG/ML VIAL IVPUSH ONE (06:14)
--- NOTE | 2019-08-27 08:00 | PN ---
Progress Note (short form) - Note Progress Note: ost op day#1.S/P Laproscopic appendectomy under GA uneventful.Patient stable.No any anesthesia related problem.Patient DC from the anesthesia care.
[2019-08-27 08:10] LABS: BASO % 0.1 % (0-2.0); EOS % 0.1 % (0-4.5); HEMATOCRIT 33.3 % (32.4-45.2); HEMOGLOBIN 11.7 GM/dL (10.7-15.3); LYMPH % 16.7 % (8-40); MCH 30.4 pg (25.7-33.7); MCHC 35.2 g/dl (32.0-36.0); MEAN CELL VOLUME 86.2 fl (80-96); MEAN PLT VOLUME 6.8 fl (7.5-11.1); MONO % 1.8 % (3.8-10.2); NEUT % 81.3 % (42.8-82.8); PLATELET COUNT 326 K/MM3 (134-434); RBC 3.86 M/mm3 (3.60-5.2); RDW 12.4 % (11.6-15.6); WHITE BLOOD COUNT 7.9 K/mm3 (4.0-10.0)
--- NOTE | 2019-08-27 08:52 | OP ---
DATE OF OPERATION: 08/27/2019 DATE OF DICTATION: 08/27/2019 PREOPERATIVE DIAGNOSIS: Acute appendicitis. POSTOPERATIVE DIAGNOSIS: Acute appendicitis. PROCEDURE: Laparoscopic appendectomy. SURGEON: Norris Yeung MD FINDINGS: A retrocecal appendix with acute appendicitis. COMPLICATIONS: None. Patient tolerated procedure well. BLOOD LOSS: Minimal. INDICATIONS: This is a 33-year-old female who presents with 2-day history of abdominal pain. Underwent a CT evaluation which showed evidence of acute appendicitis. The patient was referred to the emergency room for evaluation and laboratory evaluation was performed and the patient was then brought to the operating room for a laparoscopic appendectomy. Risks and benefits were discussed with the patient and . DESCRIPTION OF PROCEDURE: In the OR she was placed in the supine position. After induction of general anesthesia she was prepped and draped in the usual sterile fashion. The operation was begun with a paraumbilical incision performed with a scalpel. Then a Milagros approach was used to enter the peritoneal cavity under direct vision. A 12-mm port introduced in the umbilicus and then with a laparoscope in place then two 5-mm ports were placed, 1 in the suprapubic position and 1 in the left lower quadrant. The patient was then positioned in a Trendelenburg position. The peritoneal cavity was inspected. There was no evidence of purulent material or intestinal contents. The evaluation of the right lower quadrant revealed some degree of inflammation. Attempts to visualize the appendix rather difficult given its location. Eventually identified. It was in the retrocecal location, very much adherent to the posterior aspect of the colon. Attempts to mobilize the tip of the appendix in order to bring it into the field appeared to be technically difficult. Therefore, we performed a retrograde appendectomy. This was done with creating a window between the mesoappendix and the base of the cecum. At this point then an Endo JASWINDER purple stapler was introduced and the base of the appendix was divided with the stapler and then in a retrograde fashion then the mesoappendix was divided with the use of LigaSure to completely dissect the appendix all the way to the tip. At this point the appendix placed in an EndoCatch bag. The right lower quadrant was irrigated and suctioned. There were some minor bleeding points along the staple line which were then controlled with Endoclips and at this point after successful hemostasis the right lower quadrant and right upper quadrant were irrigated and suctioned and the purulence was aspirated and irrigated and the ports were removed under direct vision. The fascia at the umbilical port was closed with 0 Vicryl sutures. The skin was closed with 4-0 Monocryl. Marcaine was infiltrated in all port sites and Dermabond was applied. The patient was returned to the recovery room awake, alert, in stable condition. She tolerated the procedure well. Amaury [id number]
[2019-08-27 09:00] LABS: ALBUMIN 3.4 g/dl (3.4-5.0); BILIRUBIN,TOTAL 0.3 mg/dL (0.2-1); BLOOD UREA NITROGEN 7.8 mg/dL (7-18); CALCIUM 8.1 mg/dL (8.5-10.1); CREATININE 0.9 mg/dL (0.55-1.3); MAGNESIUM 1.8 mg/dL (1.8-2.4); PHOSPHOROUS 2.1 mg/dL (2.5-4.9); TOT PROT 6.8 g/dl (6.4-8.2)
[2019-08-27 09:35] VITALS: BP 131/84; PULSE 82; TEMP 97.7
--- NOTE | 2019-08-27 09:38 | PN ---
Progress Note (short form) - Note Progress Note: surgery POD #1 laparoscopic appendectomy patient seen and examined at bedside. She is tolerating her clears and has been OOB ambulating to the bathroom to void. She is passing gas but has not had a BM yet. The patient states her pain is controlled and she denies any CO, SOB, N/V, fever or chills. Vital Signs Temp 97.7 F 08/27/19 09:34 Pulse 82 08/27/19 09:34 Resp 18 08/27/19 09:34 BP 131/84 08/27/19 09:34 Pulse Ox 100 08/27/19 04:22 Intake & Output 08/26/19 08/26/19 08/27/19 11:59 23:59 11:59 Intake Total 1600 Output Total 5 Balance 1595 Weight 138 lb 138 lb Intake: IV 1200 D5-Ns - 1,000 ml @ 100 500 mls/hr IV ASDIR KRISTOPHER Rx#: [id number] Oral 400 Output: Urine 0 Estimated Blood Loss 5 Other: # Unmeasured Voids Void 3 Height 5 ft 5 ft Body Mass Index (BMI) 26.9 26.9 Weight Measurement Method Standing Scale Weight Measurement Method Est/Stated by Patient CBC, BMP 08/27/19 06:46 08/27/19 06:46 PE: A&Ox3, NAD Unlabored resp on RA ABD: slightly distended with mild TTP throughout, Incisions C/D/I with surrounding tissue intact with no tracking erythema, edema or active d/c. Problem List - Problems (1) Appendicitis Assessment/Plan: POD #1 doing well. -advance to regular diet at lunch -encourage OOB as tolerated -Encourage IS -d/c planning for possible later today if tolerating diet Evaluation and plan discussed with Dr Aragon. Code(s): K37 - UNSPECIFIED APPENDICITIS Qualifiers: Appendicitis type: unspecified Qualified Code(s): K37 - Unspecified appendicitis
[2019-08-27] MEDS ORDERED: PIPERACILLIN/TAZOB 3.375 GM 3.375 GM in DEXTROSE 5%-WATER - 50 ML IVPB ONE (09:53)
[2019-08-27] MEDS ORDERED: ALBUTEROL SO4 HFA INHALER IH PRN (10:32)
[2019-08-27] MEDS ORDERED: PIPERACILLIN/TAZOBACTAM 3.375 GM VIAL IVPB ONE (11:51)
[2019-08-27] MEDS ORDERED: DEXTROSE 5%-WATER - 50 ML IVPB ONE (11:51)
--- NOTE | 2019-08-27 13:47 | DS ---
Physical Exam: SUBJECTIVE: Patient seen and examined at bedside. pt has no acute complaints. no SOB, CP, abdominal pain. she is passing flatus and tolerating diet. OBJECTIVE: Vital Signs Period Temp Pulse Resp BP Sys/Hawkins Pulse Ox Last 24 Hr 97.7 F-98.9 F 72-88 14-18 115-143/55-95 95-100 PHYSICAL EXAM GENERAL: The patient is awake, alert, and fully oriented, in no acute distress. HEAD: Normal with no signs of trauma. ENT: moist mucous membranes. LUNGS: Breath sounds equal, clear to auscultation bilaterally, no wheezes, no crackles, no accessory muscle use. HEART: Regular rate and rhythm, S1, S2 without murmur, rub or gallop. ABDOMEN: Soft, nontender,mildly distended, normoactive bowel sounds, no guarding EXTREMITIES: 2+ pulses, warm, well-perfused, no edema. NEUROLOGICAL: Cranial nerves II through XII grossly intact. Normal speech PSYCH: Normal mood, normal affect. SKIN: Warm, dry, normal turgor, no rashes or lesions noted. LABS Laboratory Results - last 24 hr 08/26/19 08/26/19 08/26/19 20:25 20:53 20:57 WBC 8.8 Corrected WBC (auto) RBC 3.84 Hgb 11.5 Hct 33.4 D MCV 87.2 MCH 30.0 MCHC 34.4 RDW 12.2 Plt Count 343 MPV 6.6 L Absolute Neuts (auto) 4.6 Absolute Lymphs (auto) Absolute Monos (auto) Absolute Eos (auto) Absolute Basos (auto) Add Manual Diff Neutrophils % 52.2 D Lymphocytes % 35.3 D Monocytes % 7.5 Eosinophils % 4.6 H D Basophils % 0.4 Nucleated RBC % 0 Platelet Estimate Platelet Comment Normal RBC Morphology PT with INR INR PTT (Actin FS) Sodium 142 Potassium 3.7 Chloride 110 H Carbon Dioxide 23 Anion Gap 10 BUN 9.0 Creatinine 0.7 Est GFR (CKD-EPI)AfAm 132.87 Est GFR (CKD-EPI)NonAf 114.64 Random Glucose 97 Lactic Acid Calcium 8.0 L Phosphorus Magnesium Total Bilirubin 0.4 AST 14 L ALT 16 Alkaline Phosphatase 30 L Total Protein 6.9 Albumin 3.5 Lipase 170 Serum , Qual Blood Type A POSITIVE Antibody Screen Negative 08/27/19 08/27/19 06:46 06:46 WBC 7.9 Corrected WBC (auto) RBC 3.86 Hgb 11.7 Hct 33.3 MCV 86.2 MCH 30.4 MCHC 35.2 RDW 12.4 Plt Count 326 MPV 6.8 L Absolute Neuts (auto) 6.4 Absolute Lymphs (auto) Absolute Monos (auto) Absolute Eos (auto) Absolute Basos (auto) Add Manual Diff Neutrophils % 81.3 D Lymphocytes % 16.7 D Monocytes % 1.8 L Eosinophils % 0.1 D Basophils % 0.1 Nucleated RBC % 0 Platelet Estimate Platelet Comment Normal RBC Morphology PT with INR INR PTT (Actin FS) Sodium 140 Potassium 4.0 Chloride 108 H Carbon Dioxide 22 Anion Gap 9 BUN 7.8 Creatinine 0.9 Est GFR (CKD-EPI)AfAm 98.06 Est GFR (CKD-EPI)NonAf 84.60 Random Glucose 212 H Lactic Acid Calcium 8.1 L Phosphorus 2.1 L Magnesium 1.8 Total Bilirubin 0.3 AST 15 ALT 19 Alkaline Phosphatase 31 L Total Protein 6.8 Albumin 3.4 Lipase Serum , Qual Blood Type Antibody Screen HOSPITAL COURSE: Date of Admission:08/26/19 33 yo F PMH of HLD, pancreatitis, asthma presented to ED for RLQ pain and bloating that has been worsening x 3 days. Pt had an outpt CT showing appendicitis and was instructed to come to the ED. Pt was taken to OR and had appendectomy.pt was given zosyn periop pt is s/p appendectomy, passing flatus, tolerating diet . pt's pain is controlled and is instructed to use incentive spirometry. pt is dc with ventolin for asthma. pt should follow up with PMD and surgeon in one week. Date of Discharge: 08/27/19 Minutes to complete discharge: 36 Discharge Summary Problems reviewed: Yes Reason For Visit: APPENDICITIS Condition: Good - Instructions Diet, Activity, Other Instructions: Discharge Instructions Dear GRACIELA PERAZA, Post Operative Instructions Physical activity Resume your normal everyday activity as tolerated no heavy lifting or exercise until seen by your surgeon. You may walk unlimited amounts of and climb stairs. You may resume driving the car when you feel safe and comfortable behind the wheel and are no longer taking narcotics. Wound care You may shower 2 days after surgery but do not submerge the incisions. Do not apply lotion or ointments to incisions. Diet There are no dietary restrictions. Eat healthy, high-fiber foods. Drink 6 to 8 glasses of liquid each day. This will assist in keeping your bowels are regular. Pain management You may take Tylenol or acetaminophen or Ibuprofen (for example, Motrin, Advil etc.) Any pain prescription medication ordered should be taken as prescribed for moderate to severe pain. Call Dr. Aragon for any of the following: Severe pain not relieved by medication Fever of 101 or higher Excessive bleeding or drainage on dressing Inability to urinate If you experience any chest pain or shortness of breath please seek emergency treatment. Call the office to confirm your post operative appointment.. Referrals: Rachele Millard MD [Primary Care Provider] - Disposition: HOME - Home Medications Comprehensive Discharge Medication List: Ambulatory Orders Fenofibrate 150 mg PO ASDIR 10/17/18 Isoniazid 100 mg PO ASDIR 10/17/18 Oxycodone HCl/Acetaminophen [Percocet 5-325 mg Tablet] 1 - 2 tab PO Q6H PRN #8 tab MDD 4 10/17/18 Sertraline HCl [Zoloft -] 50 mg PO DAILY 10/17/18 traZODone HCL [Trazodone HCl] 50 mg PO ASDIR 10/17/18 Acetaminophen/Caffeine/Butalb [Fioricet -] 1 tablet PO Q8H #15 tablet MDD 3 03/02 Cyclobenzaprine HCl [Flexeril -] 10 mg PO HS #10 tablet 12/20/18 Oxycodone HCl/Acetaminophen [Percocet 5-325 mg Tablet] 1 tab PO Q4H PRN #10 tablet MDD 6 08/27/19 This patient is new to me today: Yes Date on this admission: 08/27/19 Emergency Visit: No Critical Care patient: No - Discharge Referral Referred to [facility] No ATTENDING PHYSICIAN STATEMENT I saw and evaluated the patient. I reviewed the resident's note and discussed the case with the resident. I agree with the resident's findings and plan as documented. SUBJECTIVE: OBJECTIVE: ASSESSMENT AND PLAN:
--- NOTE | 2019-08-27 15:16 | EKG ---
Test Reason : Blood Pressure : / mmHG Vent. Rate : 080 BPM Atrial Rate : 080 BPM P-R Int : 162 ms QRS Dur : 092 ms QT Int : 386 ms P-R-T Axes : 043 055 014 degrees QTc Int : 445 ms NORMAL SINUS RHYTHM NORMAL ECG WHEN COMPARED WITH ECG OF 12-JAN-2015 22:01, T WAVE AMPLITUDE HAS DECREASED IN ANTERIOR LEADS Confirmed by CLAUDIA JENNINGS MD ([id number]) on 08/27/2019 3:16:02 PM Referred By: Confirmed By:CLAUDIA JENNINGS MD
--- NOTE | 2019-08-28 19:13 | PATH ---
Surgical Pathology Report Patient Name: GRACIELA PERAZA [facility]. Rec. #: [id number] /Age/Gender: 1985 (Age: 33) / F Account: <[id number]> Location: EMERGENCY ROOM Taken: 08/26/2019 Received: 08/27/2019 Reported: 08/28/2019 Physicians: Norris Yeung M.D. Specimen(s) Received APPENDIX Clinical History Acute appendicitis Final Diagnosis APPENDIX, APPENDECTOMY: ACUTE APPENDICITIS AND PERIAPPENDICITIS. Electronically Signed Denisha Trejo M.D. Gross Description Received in formalin, labeled "appendix," is a 7.4 cm. in length vermiform appendix with a stapled margin of resection and moderate attached fat. The serosa is pink-wheeler and smooth. Sectioning reveals wheeler material possibly occluding the lumen. The wall of the appendix is edematous and averages 0.2 cm. in thickness. Pure [employer] Machine Operator sections are submitted in 2 cassettes as follows: 1-bisected distal tip of appendix and personal service representative cross sections; 2-margin of resection. /08/27/2019 [facility]08/27/2019
== END 2019-08-27 14:09 | disposition home or self-care (01) ==
LOC: JER 18:26 → JASUSAT 21:14 → J7W 21:14 → UNDOADMIN 21:14 → JER 23:23 → JASUSAT 08-27 14:09
PROVIDERS: ATTEND Internal Medicine
PROC: 0DTJ4ZZ Resection of Appendix, Percutaneous Endoscopic Approach (ICD-10-PCS; principal; 2019-08-26)
DX: K35.80 Unspecified acute appendicitis (principal); E78.5 Hyperlipidemia, unspecified; J45.909 Unspecified asthma, uncomplicated; F41.9 Anxiety disorder, unspecified; Z91.018 Allergy to other foods
CPT/HCPCS: 36415; 71045-TC-FY; 80053; 83605; 83690; 83735; 84100; 84703; 85025; 85610; 85730; 86850; 86900; 86901; 93005; 93010; 94760; 99285-25; J7030

== ENCOUNTER 2020-07-30 14:16 | Emergency (ER) | payer BC, OTHER ==
[2020-07-30 14:47] VITALS: BMI 37.0
[2020-07-30] MEDS ORDERED: IBUPROFEN 600 MG TABLET (FP) PO ONE ×2 (16:59→17:00)
[2020-07-30] MEDS ORDERED: ACETAMINOPHEN 500 MG TABLET (FP) PO ONE (16:59)
[2020-07-30] MEDS ORDERED: ACETAMINOPHEN 500 MG TABLET (FP) ONE (17:00)
[2020-07-30] MEDS ORDERED: LORazepam 1 MG TABLET PO ONE (18:55)
[2020-07-30] MEDS ORDERED: LORazepam 1 MG TABLET ONE (19:04)
[2020-07-30 19:24] VITALS: BP 132/78; PULSE 78; TEMP 98.2
== END 2020-07-30 19:20 | disposition home or self-care (01) ==
LOC: JER 14:16
DX: S06.0X0A Concussion without loss of consciousness, initial encounter (principal)
CPT/HCPCS: 70450-TC; 99284-25

== ENCOUNTER 2021-06-13 21:28 | Emergency (ER) | payer BC, OTHER ==
[2021-06-13 21:41] VITALS: TEMP 97.9; BMI 23.8
[2021-06-13] MEDS ORDERED: SODIUM CHLORIDE 0.9% 1000 ML INFUS.BAG IV ONE (22:23)
[2021-06-13] MEDS ORDERED: METOCLOPRAMIDE HCL INJECTION 10 MG/2 ML VIAL IVPUSH ONE (22:23)
[2021-06-13] MEDS ORDERED: ACETAMINOPHEN 500 MG TABLET (FP) PO ONE (22:24)
[2021-06-13] MEDS ORDERED: ACETAMINOPHEN INJECTION 100 ML IVPB ONE (22:26)
[2021-06-13] MEDS ORDERED: METOCLOPRAMIDE HCL INJECTION 10 MG/2 ML VIAL ONE (22:26)
[2021-06-14 00:05] VITALS: BP 126/73; PULSE 68
== END 2021-06-14 00:08 | disposition home or self-care (01) ==
LOC: JER 21:28
PROC: 3E033GC Introduction of Other Therapeutic Substance into Peripheral Vein, Percutaneous Approach (ICD-10-PCS; principal; 2021-06-13)
PROC: 3E033GC Introduction of Other Therapeutic Substance into Peripheral Vein, Percutaneous Approach (ICD-10-PCS; 2021-06-13)
DX: R51.9 Headache, unspecified (principal)
CPT/HCPCS: 82962; 99284-25

== ENCOUNTER 2021-08-07 12:33 | Emergency (ER) | payer BC, OTHER ==
[2021-08-07 13:15] VITALS: BMI 38.6
[2021-08-07] MEDS ORDERED: ONDANSETRON 4 MG/2 ML VIAL IVPUSH ONE (14:59)
[2021-08-07] MEDS ORDERED: SODIUM CHLORIDE 0.9% 500 ML INFUS.BAG IV ONE (14:59)
[2021-08-07] MEDS ORDERED: morphine CARPU-JECT 2 MG/1 ML DISP.SYRIN IVPUSH ONE (14:59)
[2021-08-07] MEDS ORDERED: ONDANSETRON 4 MG/2 ML VIAL ONE (15:10)
[2021-08-07] MEDS ORDERED: morphine SULFATE 4 MG/ML VIAL ONE (15:15)
[2021-08-07 17:15] LABS: BASO % 0.2 % (0-2.0); EOS % 3.1 % (0-4.5); HEMATOCRIT 34.4 % (32.4-45.2); HEMOGLOBIN 11.9 GM/dL (10.7-15.3); LYMPH % 24.5 % (8-40); MCH 29.5 pg (25.7-33.7); MCHC 34.6 g/dl (32.0-36.0); MEAN CELL VOLUME 85.2 fl (80-96); MEAN PLT VOLUME 6.8 fl (7.5-11.1); NEUT % 65.2 % (42.8-82.8); PLATELET COUNT 383 10^3/uL (134-434); RBC 4.04 M/mm3 (3.60-5.2); RDW 12.6 % (11.6-15.6)
[2021-08-07 17:35] LABS: URINE APPEARANCE CLEAR; URINE BILIRUBIN NEGATIVE (NEGATIVE); URINE COLOR YELLOW; URINE GLUCOSE (UA) NEGATIVE (NEGATIVE); URINE KETONE NEGATIVE (NEGATIVE); URINE LEUK ESTERASE NEGATIVE (NEGATIVE); URINE NITRITE NEGATIVE (NEGATIVE); URINE PROTEIN NEGATIVE (NEGATIVE); URINE UROBILINOGEN 0.2 mg/dL (0.2-1.0)
[2021-08-07 17:36] LABS: HCG,QUALITATIVE URINE Negative
[2021-08-07 17:39] LABS: ALBUMIN 3.9 g/dl (3.4-5.0); BLOOD UREA NITROGEN 14.3 mg/dL (7-18); CALCIUM 8.9 mg/dL (8.5-10.1)
[2021-08-07 17:42] LABS: CREATININE 0.7 mg/dL (0.55-1.3)
[2021-08-07 17:44] LABS: BILIRUBIN,TOTAL 0.5 mg/dL (0.2-1); TOT PROT 7.3 g/dl (6.4-8.2)
[2021-08-07] MEDS ORDERED: ACETAMINOPHEN 1000 MG/100 ML BAG IVPB ONE (18:06)
[2021-08-07] MEDS ORDERED: ACETAMINOPHEN INJECTION 100 ML IVPB ONE (18:31)
[2021-08-07 21:15] VITALS: BP 139/78; PULSE 68; TEMP 98.3
== END 2021-08-07 21:16 | disposition home or self-care (01) ==
LOC: JER 12:33
PROC: 3E0333Z Introduction of Anti-inflammatory into Peripheral Vein, Percutaneous Approach (ICD-10-PCS; principal; 2021-08-07)
PROC: 3E033NZ Introduction of Analgesics, Hypnotics, Sedatives into Peripheral Vein, Percutaneous Approach (ICD-10-PCS; 2021-08-07)
PROC: 3E033GC Introduction of Other Therapeutic Substance into Peripheral Vein, Percutaneous Approach (ICD-10-PCS; 2021-08-07)
DX: R10.32 Left lower quadrant pain (principal)
CPT/HCPCS: 36415; 74177-TC; 80053; 81003; 83690; 84703; 85025; 87086; 87186; 99285-25; J0131

== ENCOUNTER 2022-07-31 14:00 | Emergency (ER) | payer BC, OTHER ==
[2022-07-31] MEDS ORDERED: IBUPROFEN 600 MG TABLET (FP) PO ONE ×2 (14:08→14:20)
[2022-07-31 14:18] VITALS: BP 145/102; PULSE 82; RESP 16; TEMP 98.8; BMI 25.1
== END 2022-07-31 15:19 | disposition home or self-care (01) ==
LOC: FER 14:00
DX: S60.111A Contusion of right thumb with damage to nail, initial encounter (principal); W22.8XXA Striking against or struck by other objects, initial encounter
CPT/HCPCS: 73140-TC-RT-FY; 99283-25

== ENCOUNTER 2022-10-16 14:41 | Emergency (ER) | payer BC, OTHER ==
[2022-10-16 14:58] VITALS: BP 138/97; PULSE 87; RESP 16; TEMP 98.3; BMI 25.9
[2022-10-16] MEDS ORDERED: LIDOCAINE VISCOUS 2% ORAL/TOP 100 ML BOTTLE MM ONE (16:27)
[2022-10-16] MEDS ORDERED: LIDOCAINE VISCOUS 2% ORAL/TOP 15 ML UNIT-DOSE CUP ONE (16:38)
== END 2022-10-16 16:58 | disposition home or self-care (01) ==
LOC: JERFT 14:41
DX: H92.02 Otalgia, left ear (principal); H91.92 Unspecified hearing loss, left ear
CPT/HCPCS: 99282-25

== ENCOUNTER 2022-10-30 15:56 | Inpatient (IN) | payer BC, OTHER ==
[2022-10-30] MEDS ORDERED: ONDANSETRON 4 MG/2 ML VIAL IVPUSH ONE (17:17)
[2022-10-30] MEDS ORDERED: SODIUM CHLORIDE 1,000 ML IV STA ×2 (17:17→18:33)
[2022-10-30] MEDS ORDERED: ACETAMINOPHEN 1000 MG/100 ML BAG IVPB ONE (17:17)
[2022-10-30] MEDS ORDERED: ONDANSETRON 4 MG/2 ML VIAL ONE (17:20)
[2022-10-30] MEDS ORDERED: ACETAMINOPHEN INJECTION 100 ML IVPB ONE (17:20)
[2022-10-30 17:30] LABS: HEMATOCRIT 38.7 % (32.4-45.2); MCH 30.9 pg (25.7-33.7); MCHC 38.7 g/dl (32.0-36.0); MEAN CELL VOLUME 79.8 fl (80-96); PLATELET COUNT 404 10^3/uL (134-434); RBC 4.86 M/mm3 (3.60-5.2); RDW 12.3 % (11.6-15.6); WHITE BLOOD COUNT 13.1 K/mm3 (4.0-10.0)
[2022-10-30 17:52] LABS: CHLORIDE 95 mmol/L (98-107); SODIUM 128 mmol/L (136-145)
[2022-10-30 17:54] LABS: ANION GAP 9 MMOL/L (8-16); CO2 24 mmol/L (21-32); GLUCOSE,RANDOM 240 mg/dL (74-106); LIPASE 946 U/L (73-393)
[2022-10-30 17:55] LABS: ALBUMIN 3.6 g/dl (3.4-5.0); INR 0.98 (0.83-1.09); PROTHROMBIN TIME (PATIENT) 11.4 SEC (9.7-13.0)
[2022-10-30 17:56] LABS: ANISOCYTOSIS 1+; MACROCYTOSIS 0
[2022-10-30 17:57] LABS: CREATININE 0.6 mg/dL (0.55-1.3)
[2022-10-30 17:58] LABS: ACTIVATED PTT 30.3 SECONDS (25.2-36.5)
[2022-10-30 17:59] LABS: BILIRUBIN,TOTAL 0.9 mg/dL (0.2-1)
[2022-10-30 18:00] LABS: ALK PHOS 54 U/L (45-117)
[2022-10-30 18:20] LABS: BLOOD UREA NITROGEN 9.6 mg/dL (7-18); CALCIUM 7.3 mg/dL (8.5-10.1); TOT PROT 7.5 g/dl (6.4-8.2)
[2022-10-30] MEDS ORDERED: morphine CARPU-JECT 4 MG/1 ML DISP.SYRIN IVPUSH ONE (18:28)
[2022-10-30] MEDS ORDERED: morphine SULFATE 4 MG/ML VIAL ONE (18:39)
[2022-10-30 19:22] LABS: URINE APPEARANCE CLEAR; URINE BILIRUBIN NEGATIVE (NEGATIVE); URINE COLOR YELLOW; URINE GLUCOSE (UA) NEGATIVE (NEGATIVE); URINE KETONE NEGATIVE (NEGATIVE); URINE LEUK ESTERASE NEGATIVE (NEGATIVE); URINE NITRITE NEGATIVE (NEGATIVE); URINE PROTEIN NEGATIVE (NEGATIVE); URINE UROBILINOGEN 0.2 mg/dL (0.2-1.0)
[2022-10-30] MEDS ORDERED: HYDROmorphone HCl 2 MG/ML VIAL IVPB ONE ×2 (20:27→23:31)
[2022-10-30] MEDS ORDERED: HYDROmorphone HCl 2 MG/ML VIAL ONE (20:35)
[2022-10-30 20:38] LABS: LDH 199 U/L (84-246)
[2022-10-30] MEDS ORDERED: PATIENT'S OWN MEDICATION (NON-FORMULARY) (Alprazolam [Xanax] 0.5 MG Tablet) PO SCH (20:45)
[2022-10-30] MEDS ORDERED: PATIENT'S OWN MEDICATION (NON-FORMULARY) (Fenofibrate [Fenofibrate] 150 MG Capsule) PO SCH (20:45)
[2022-10-30 20:49] LABS: CHLORIDE 103 mmol/L (98-107); SODIUM 132 mmol/L (136-145)
[2022-10-30 20:54] LABS: ALBUMIN 3.3 g/dl (3.4-5.0); ANION GAP 6 MMOL/L (8-16); CO2 23 mmol/L (21-32); GLUCOSE,RANDOM 207 mg/dL (74-106)
[2022-10-30 20:57] LABS: CREATININE 0.5 mg/dL (0.55-1.3)
[2022-10-30 20:58] LABS: BILIRUBIN,TOTAL 0.8 mg/dL (0.2-1); LDL CHOLESTEROL (ONLY SJRH) 84 mg/dL (5-100)
[2022-10-30 20:59] LABS: ALK PHOS 49 U/L (45-117)
[2022-10-30] MEDS ORDERED: ALPRAZolam 0.25 MG TABLET PO SCH (21:30)
[2022-10-30] MEDS ORDERED: PATIENT'S OWN MEDICATION (NON-FORMULARY) (Alprazolam [Xanax] 1 MG) PO SCH (21:30)
[2022-10-30 21:55] LABS: CALCIUM 6.5 mg/dL (8.5-10.1); CHOLESTEROL 416 mg/dL (50-200); HDL CHOLESTEROL 37 mg/dL (40-60)
[2022-10-30] MEDS: ALPRAZolam 1 MG TABLET PO SCH ×2 (22:14)
[2022-10-30] MEDS: ENOXAPARIN NA (PORCINE) 40 MG/0.4 ML DISP.SYRIN SQ SCH (22:14)
[2022-10-30] MEDS: lamoTRIgine 25 MG TABLET PO SCH (22:23)
[2022-10-30 22:42] LABS: LDH 250 U/L (84-246)
[2022-10-30 22:43] VITALS: BMI 26.5
[2022-10-30] MEDS ORDERED: LACTATED RINGERS SOLUTION 1,000 ML/1,000 ML INFUS.BAG IV SCH (23:45)
[2022-10-30] MEDS ORDERED: INSULIN REGULAR 100 UNITS in SODIUM CHLORIDE 99 ML IVPB SCH (23:45)
[2022-10-30] MEDS ORDERED: DEXTROSE 5%-WATER - 1,000 ML IV SCH (23:45)
[2022-10-31] MEDS ORDERED: INSULIN REGULAR 100 UNITS in SODIUM CHLORIDE 99 ML IVPB SCH ×3 (00:14→16:49)
[2022-10-31] MEDS ORDERED: DEXTROSE 5%-WATER - 1,000 ML IV SCH ×2 (00:22→06:41)
[2022-10-31] MEDS: HYDROmorphone HCl 2 MG/ML VIAL IVPB PRN ×6 (04:14→21:34)
[2022-10-31] MEDS ORDERED: DEXTROSE 5%-LACTATED RINGERS 1,000 ML IV SCH (07:30)
[2022-10-31 07:45] LABS: CHLORIDE 101 mmol/L (98-107); SODIUM 133 mmol/L (136-145)
[2022-10-31 07:52] LABS: ANION GAP 6 MMOL/L (8-16); CO2 27 mmol/L (21-32); LIPASE 692 U/L (73-393); MAGNESIUM 1.5 mg/dL (1.8-2.4)
[2022-10-31 07:53] LABS: CALCIUM 7.4 mg/dL (8.5-10.1)
[2022-10-31 07:54] LABS: AMYLASE 57 U/L (25-115); BLOOD UREA NITROGEN 4.2 mg/dL (7-18); CREATININE 0.5 mg/dL (0.55-1.3); GLUCOSE,RANDOM 152 mg/dL (74-106)
[2022-10-31 07:56] LABS: BILIRUBIN,DIRECT < 0.1 mg/dL (0.0-0.2); PHOSPHOROUS 1.5 mg/dL (2.5-4.9)
[2022-10-31 07:58] LABS: BILIRUBIN,TOTAL 0.7 mg/dL (0.2-1)
[2022-10-31 08:00] LABS: ALK PHOS 44 U/L (45-117)
[2022-10-31 08:25] LABS: HEMOGLOBIN 12.9 GM/dL (10.7-15.3); MCH 30.1 pg (25.7-33.7); MCHC 36.9 g/dl (32.0-36.0); MEAN CELL VOLUME 81.7 fl (80-96); MEAN PLT VOLUME 7.1 fl (7.5-11.1); PLATELET COUNT 340 10^3/uL (134-434); RBC 4.28 M/mm3 (3.60-5.2); RDW 12.6 % (11.6-15.6); WHITE BLOOD COUNT 8.2 K/mm3 (4.0-10.0)
[2022-10-31] MEDS ORDERED: MAGNESIUM SULF 50% (8.12 MEQ/2 ML-1 GM VIAL) IVPB ONE (08:44)
[2022-10-31] MEDS ORDERED: POTASSIUM PHOSPHATE 30 MM in SODIUM CHLORIDE 500 ML IVPB ONE (08:45)
[2022-10-31] MEDS: DEXTROSE 5%-LACTATED RINGERS 1,000 ML IV SCH ×2 (09:38→16:58)
[2022-10-31] MEDS: ALPRAZolam 1 MG TABLET PO SCH (09:38)
[2022-10-31] MEDS: FENOFIBRIC ACID 135 MG CAP PO SCH (09:38)
[2022-10-31] MEDS: ENOXAPARIN NA (PORCINE) 40 MG/0.4 ML DISP.SYRIN SQ SCH (09:39)
[2022-10-31] MEDS ORDERED: DEXTROSE 50%-WATER - 25 GM/50 ML VIAL IVPUSH PRN (10:24)
[2022-10-31] MEDS ORDERED: ACETAMINOPHEN 1000 MG/100 ML BAG IVPB PRN (10:26)
[2022-10-31] MEDS ORDERED: MAGNESIUM 1GM/D5W 100ML - 100 ML IVPB IVPB ONE (10:32)
[2022-10-31] MEDS: ONDANSETRON 4 MG/2 ML VIAL IVPUSH PRN ×2 (12:54→18:35)
[2022-10-31 14:58] LABS: LDH 158 U/L (84-246)
[2022-10-31] MEDS ORDERED: DEXTROSE 50%-WATER 25 GM/50 ML DISP.SYRIN ONE (15:54)
[2022-10-31 16:05] LABS: CALCIUM 8.1 mg/dL (8.5-10.1)
[2022-10-31 16:06] LABS: BLOOD UREA NITROGEN 3.1 mg/dL (7-18)
[2022-10-31 16:09] LABS: CREATININE 0.5 mg/dL (0.55-1.3); PHOSPHOROUS 2.7 mg/dL (2.5-4.9)
[2022-10-31] MEDS ORDERED: POTASSIUM CHLORIDE ORAL LIQUID 20 MEQ/15 ML PO ONE ×3 (18:36→18:56)
[2022-10-31] MEDS ORDERED: NAPH,MB-DB/K PH,MBDB POWDER PACKET PO ONE ×2 (18:40→19:15)
[2022-10-31] MEDS: KCL 10 MEQ IVPB 10 MEQ/100 ML INFUS.BAG IVPB SCH ×3 (19:56→23:12)
[2022-10-31] MEDS: lamoTRIgine 25 MG TABLET PO SCH (21:34)
[2022-10-31] MEDS ORDERED: ONDANSETRON 4 MG/2 ML VIAL IVPUSH ONE (22:25)
[2022-11-01] MEDS: DEXTROSE 5%-LACTATED RINGERS 1,000 ML IV SCH ×4 (00:27→22:50)
[2022-11-01] MEDS: HYDROmorphone HCl 2 MG/ML VIAL IVPB PRN ×6 (00:27→19:58)
[2022-11-01 02:37] LABS: CHLORIDE 106 mmol/L (98-107); SODIUM 138 mmol/L (136-145)
[2022-11-01 02:38] LABS: CALCIUM 8.8 mg/dL (8.5-10.1)
[2022-11-01 02:39] LABS: ANION GAP 3 MMOL/L (8-16); CO2 28 mmol/L (21-32); GLUCOSE,RANDOM 92 mg/dL (74-106); MAGNESIUM 1.9 mg/dL (1.8-2.4)
[2022-11-01 02:42] LABS: CREATININE 0.6 mg/dL (0.55-1.3)
[2022-11-01 02:44] LABS: BLOOD UREA NITROGEN 2.8 mg/dL (7-18)
[2022-11-01] MEDS: INSULIN REGULAR 100 UNITS in SODIUM CHLORIDE 99 ML IVPB SCH ×2 (05:30→09:46)
[2022-11-01] MEDS ORDERED: DEXTROSE 50%-WATER - 25 GM/50 ML VIAL IVPUSH ONE (06:38)
[2022-11-01] MEDS ORDERED: DEXTROSE 50%-WATER 25 GM/50 ML DISP.SYRIN ONE (06:44)
[2022-11-01 08:08] LABS: CHLORIDE 107 mmol/L (98-107); SODIUM 140 mmol/L (136-145)
[2022-11-01 08:13] LABS: HEMATOCRIT 33.6 % (32.4-45.2); HEMOGLOBIN 11.8 GM/dL (10.7-15.3); MCH 28.7 pg (25.7-33.7); MCHC 35.2 g/dl (32.0-36.0); MEAN CELL VOLUME 81.4 fl (80-96); MEAN PLT VOLUME 7.2 fl (7.5-11.1); PLATELET COUNT 341 10^3/uL (134-434); RBC 4.12 M/mm3 (3.60-5.2); RDW 12.7 % (11.6-15.6); WHITE BLOOD COUNT 10.9 K/mm3 (4.0-10.0)
[2022-11-01 08:15] LABS: CALCIUM 8.8 mg/dL (8.5-10.1); GLUCOSE,RANDOM 66 mg/dL (74-106)
[2022-11-01 08:16] LABS: ALBUMIN 3.2 g/dl (3.4-5.0); ANION GAP 4 MMOL/L (8-16); CO2 28 mmol/L (21-32); CREATININE 0.5 mg/dL (0.55-1.3); LIPASE 275 U/L (73-393); PHOSPHOROUS 2.9 mg/dL (2.5-4.9); SGPT/ALT 17 U/L (13-61)
[2022-11-01 08:17] LABS: TOT PROT 6.3 g/dl (6.4-8.2)
[2022-11-01 08:19] LABS: SGOT/AST 14 U/L (15-37)
[2022-11-01 08:21] LABS: ALK PHOS 41 U/L (45-117)
[2022-11-01 08:22] LABS: BILIRUBIN,TOTAL 0.6 mg/dL (0.2-1)
[2022-11-01 08:51] LABS: BLOOD UREA NITROGEN 2.3 mg/dL (7-18)
[2022-11-01] MEDS ORDERED: ONDANSETRON 4 MG/2 ML VIAL IVPUSH PRN (09:27)
[2022-11-01] MEDS: FENOFIBRIC ACID 135 MG CAP PO SCH (09:42)
[2022-11-01] MEDS: ENOXAPARIN NA (PORCINE) 40 MG/0.4 ML DISP.SYRIN SQ SCH (09:46)
[2022-11-01 12:43] LABS: CALCIUM 8.9 mg/dL (8.5-10.1)
[2022-11-01] MEDS ORDERED: INSULIN REGULAR 100 UNITS in SODIUM CHLORIDE 99 ML IVPB SCH ×2 (12:45→13:09)
[2022-11-01 12:46] LABS: PHOSPHOROUS 3.1 mg/dL (2.5-4.9)
[2022-11-01 12:47] LABS: CREATININE 0.6 mg/dL (0.55-1.3)
[2022-11-01 12:49] LABS: MAGNESIUM 1.9 mg/dL (1.8-2.4)
[2022-11-01] MEDS ORDERED: ACETAMINOPHEN 1000 MG/100 ML BAG IVPB ONE (12:52)
[2022-11-01] MEDS ORDERED: ONDANSETRON 4 MG/2 ML VIAL IVPUSH ONE (13:00)
[2022-11-01] MEDS: ONDANSETRON 4 MG/2 ML VIAL IVPUSH PRN ×2 (17:35→19:58)
[2022-11-01] MEDS: KCL 10 MEQ IVPB 10 MEQ/100 ML INFUS.BAG IVPB SCH ×2 (20:53→22:50)
[2022-11-01] MEDS: lamoTRIgine 25 MG TABLET PO SCH (21:39)
[2022-11-01] MEDS: ALPRAZolam 1 MG TABLET PO PRN (21:40)
[2022-11-01] MEDS ORDERED: FENTANYL CITRATE/PF 50 MCG/ML VIAL IVPUSH ONE (21:45)
[2022-11-01] MEDS ORDERED: ROSUVASTATIN CA 20 MG TABLET PO SCH (22:00)
[2022-11-02] MEDS ORDERED: FENTANYL CITRATE/PF 50 MCG/ML VIAL IVPUSH ONE (00:15)
[2022-11-02] MEDS: DEXTROSE 5%-LACTATED RINGERS 1,000 ML IV SCH (03:19)
[2022-11-02] MEDS: HYDROmorphone HCl 2 MG/ML VIAL IVPB PRN (03:47)
[2022-11-02 07:58] LABS: CHLORIDE 108 mmol/L (98-107); SODIUM 141 mmol/L (136-145)
[2022-11-02 08:07] LABS: CALCIUM 8.9 mg/dL (8.5-10.1); GLUCOSE,RANDOM 92 mg/dL (74-106)
[2022-11-02 08:08] LABS: ANION GAP 5 MMOL/L (8-16); CO2 28 mmol/L (21-32); MAGNESIUM 1.6 mg/dL (1.8-2.4)
[2022-11-02 08:09] LABS: PHOSPHOROUS 3.4 mg/dL (2.5-4.9); SGPT/ALT 18 U/L (13-61)
[2022-11-02 08:10] LABS: CREATININE 0.6 mg/dL (0.55-1.3); SGOT/AST 15 U/L (15-37)
[2022-11-02 08:11] LABS: BILIRUBIN,TOTAL 0.4 mg/dL (0.2-1); TOT PROT 6.1 g/dl (6.4-8.2)
[2022-11-02 08:12] LABS: ALK PHOS 39 U/L (45-117)
[2022-11-02 08:13] LABS: HEMATOCRIT 33.1 % (32.4-45.2); HEMOGLOBIN 11.7 GM/dL (10.7-15.3); MCH 29.1 pg (25.7-33.7); MCHC 35.5 g/dl (32.0-36.0); MEAN CELL VOLUME 82.1 fl (80-96); MEAN PLT VOLUME 7.1 fl (7.5-11.1); PLATELET COUNT 339 10^3/uL (134-434); RBC 4.03 M/mm3 (3.60-5.2); WHITE BLOOD COUNT 6.1 K/mm3 (4.0-10.0)
[2022-11-02 08:17] LABS: BLOOD UREA NITROGEN 1.9 mg/dL (7-18)
[2022-11-02] MEDS ORDERED: MAGNESIUM SULF 50% (8.12 MEQ/2 ML-1 GM VIAL) IVPB ONE (09:36)
[2022-11-02] MEDS ORDERED: ACETAMINOPHEN 1000 MG/100 ML BAG IVPB PRN (09:47)
[2022-11-02] MEDS ORDERED: NIACIN 500 MG TABLET PO SCH (10:00)
[2022-11-02] MEDS ORDERED: POTASSIUM CHLORIDE ORAL LIQUID 20 MEQ/15 ML PO SCH ×2 (10:00→22:00)
[2022-11-02] MEDS ORDERED: OMEGA-3 ACID ETHYL ESTERS (FATTY-ACIDS) 1 GM CAPSULE (FP) PO SCH (10:00)
[2022-11-02] MEDS: FENOFIBRIC ACID 135 MG CAP PO SCH (10:45)
[2022-11-02] MEDS: ENOXAPARIN NA (PORCINE) 40 MG/0.4 ML DISP.SYRIN SQ SCH (10:45)
[2022-11-02] MEDS ORDERED: LACTATED RINGERS SOLUTION 1,000 ML/1,000 ML INFUS.BAG IV SCH ×2 (11:00→17:35)
[2022-11-02] MEDS: ALPRAZolam 1 MG TABLET PO PRN ×2 (11:11→22:21)
[2022-11-02] MEDS: INSULIN SLIDING SCALE (NOVOLOG) 1 VIAL SQ SCH ×3 (12:34→22:21)
[2022-11-02] MEDS ORDERED: ONDANSETRON 4 MG/2 ML VIAL IVPUSH PRN (17:35)
[2022-11-02] MEDS: OMEGA-3 ACID ETHYL ESTERS (FATTY-ACIDS) 1 GM CAPSULE (FP) PO SCH (21:38)
[2022-11-02] MEDS: ACETAMINOPHEN 1000 MG/100 ML BAG IVPB PRN (21:43)
[2022-11-02] MEDS ORDERED: ROSUVASTATIN CA 20 MG TABLET PO SCH (22:00)
[2022-11-02] MEDS ORDERED: lamoTRIgine 25 MG TABLET PO SCH (22:00)
[2022-11-02] MEDS ORDERED: INSULIN (NOVOLOG) ASPART 100 UNITS/ML 10ML VIAL ONE (22:14)
[2022-11-02] MEDS: NIACIN 500 MG TABLET PO SCH (23:00)
[2022-11-03] MEDS ORDERED: KETOROLAC TROMETHAMINE 15 MG/ML VIAL IVPUSH ONE (02:26)
[2022-11-03] MEDS: INSULIN SLIDING SCALE (NOVOLOG) 1 VIAL SQ SCH ×2 (06:41→11:56)
[2022-11-03] MEDS: ACETAMINOPHEN 1000 MG/100 ML BAG IVPB PRN (07:18)
[2022-11-03 07:47] VITALS: RESP 18
[2022-11-03 08:34] LABS: HEMATOCRIT 35.6 % (32.4-45.2); HEMOGLOBIN 12.4 GM/dL (10.7-15.3); MCH 28.5 pg (25.7-33.7); MCHC 34.8 g/dl (32.0-36.0); MEAN CELL VOLUME 82.1 fl (80-96); MEAN PLT VOLUME 7.4 fl (7.5-11.1); PLATELET COUNT 382 10^3/uL (134-434); RBC 4.33 M/mm3 (3.60-5.2); RDW 12.8 % (11.6-15.6); WHITE BLOOD COUNT 4.5 K/mm3 (4.0-10.0)
[2022-11-03 08:44] LABS: CALCIUM 8.7 mg/dL (8.5-10.1)
[2022-11-03 08:45] LABS: ALBUMIN 3.2 g/dl (3.4-5.0); BLOOD UREA NITROGEN 6.8 mg/dL (7-18)
[2022-11-03 08:48] LABS: CREATININE 0.7 mg/dL (0.55-1.3); PHOSPHOROUS 2.8 mg/dL (2.5-4.9)
[2022-11-03 08:49] LABS: TOT PROT 6.7 g/dl (6.4-8.2)
[2022-11-03 08:50] LABS: BILIRUBIN,TOTAL 0.4 mg/dL (0.2-1)
[2022-11-03] MEDS: ALPRAZolam 1 MG TABLET PO PRN (09:24)
[2022-11-03] MEDS: NIACIN 500 MG TABLET PO SCH (09:24)
[2022-11-03] MEDS: OMEGA-3 ACID ETHYL ESTERS (FATTY-ACIDS) 1 GM CAPSULE (FP) PO SCH (09:24)
[2022-11-03] MEDS ORDERED: ENOXAPARIN NA (PORCINE) 40 MG/0.4 ML DISP.SYRIN SQ SCH (10:00)
[2022-11-03] MEDS ORDERED: FENOFIBRIC ACID 135 MG CAP PO SCH (10:00)
[2022-11-03 14:41] VITALS: BP 120/88; PULSE 75; TEMP 98.2
== END 2022-11-03 16:10 | disposition home or self-care (01) | DRG 440 ==
LOC: JER 15:56 → JERBED 18:57 → J6S 21:03 → JICU 22:56 → J8W 11-02 17:32
PROVIDERS: ADMIT Internal Medicine; ATTEND Nurse Practitioner Acute Care
DX: K85.90 Acute pancreatitis without necrosis or infection, unspecified (principal); F41.9 Anxiety disorder, unspecified; F31.9 Bipolar disorder, unspecified; E78.1 Pure hyperglyceridemia; D72.829 Elevated white blood cell count, unspecified
CPT/HCPCS: 0241U-QW; 36415; 74170-TC; 80048; 80053; 80061; 80076; 81003; 82150; 82962; 83036; 83615; 83690; 83735; 84100; 84132; 84478; 84702; 85025; 85027; 85610; 85730; 87086; 93005; 93010; 99285-25; Q9967